=== PATIENT | female | born 1995 | race Two or more races ===

== ENCOUNTER 2017-02-27 22:12 | Inpatient (IN) | payer BC ==
[~2017-02-27] VITALS: Ht 167.6 cm; Wt 64.3 kg
--- NOTE | ~2017-02-27 | OR ---
PATIENT'S NAME: DIONE HARRINGTON [facility] AGE: 22 Y [address] ROOM: [place] [address] LOCATION: [facility] ADMIT DATE: 02/27/2017 OR/Procedure Report DISCHARGE DATE: FAMILY PHYSICIAN: PHYSICIAN, NO ATTENDING PHYSICIAN: Linnette Leon SURGEON: Linnette Leon MD SOLUTION COORDINATOR: None. DATE OF PROCEDURE: 02/28/2017 PREOPERATIVE DIAGNOSIS: Term intrauterine , spontaneous labor. POSTOPERATIVE DIAGNOSIS: Term intrauterine , spontaneous labor with delivery of viable male . PROCEDURE: Normal spontaneous vaginal delivery. ANESTHESIA: Intrathecal. ESTIMATED BLOOD LOSS: 100 mL. CLINICAL INDICATION: Dione Harrington is a 22-year-old female, 2, para 1, at 38 weeks' gestational age. She would present in spontaneous labor. She would have placement of intrathecal, artificial rupture of membranes and would push effectively. FINDINGS: Delivery of viable 7 pounds and 11 ounce male infant, scores 10 at 1 minute and 10 at 5 minutes. umbilical arterial cord blood gas is pending at the time of dictation. TECHNICAL PROCEDURES: The patient was left in the Labor and Delivery room, prepped and draped in the usual fashion. Her intrathecal anesthesia was sufficient for delivery. She would deliver a viable 7-pound and 11-ounce male over an intact perineum. The umbilical cord was doubly clamped, the intervening segments cut. was handed off to the mother and later the awaiting nursing services. umbilical arterial cord blood and venous cord blood were obtained for blood gas analysis and routine studies respectively. Placenta delivered spontaneously intact with 3 vessels. Exploration of the cervix and vagina noted them to be intact. The patient tolerated the procedure well, remained in Labor and Delivery room in good condition as did the . LINNETTE LEON MD PATIENT'S NAME: DIONE HARRINGTON [facility] AGE: 22 Y [address] ROOM: [place] [address] LOCATION: [facility] ADMIT DATE: 02/27/2017 OR/Procedure Report DISCHARGE DATE: FAMILY PHYSICIAN: SABIHA MYERS ATTENDING PHYSICIAN: Linnette Leon/trevorl /[id number] d: 02/28/17 0254 t: 03/03/17 0751, OPERATIVE SUMMARY
--- NOTE | ~2017-02-27 | DS ---
PATIENT'S NAME: DIONE LUIS [facility] AGE: 22 Y [address] ROOM: [place] [address] LOCATION: [facility] ADMIT DATE: 02/27/2017 Discharge Summary DISCHARGE DATE: 03/02/2017 FAMILY PHYSICIAN: , NO ATTENDING PHYSICIAN: Steve Leon HOSPITAL COURSE: Dione is a 22-year-old , female, 2, para 1, at term. She would present in spontaneous labor. She would have a normal spontaneous vaginal delivery. She would have an unremarkable postoperative course and discharged in good condition. DISCHARGE MEDICATIONS: Percocet. Please see instruction sheet for specifics. MD WON SHARP/modl /[id number] d: t: 03/13/17 1019, DISCHARGE SUMMARY
[2017-02-27 22:55] LABS: BASOPHIL % 0.4 %; EOSINOPHIL % 0.3 %; HEMATOCRIT 31.6 % (33.0-46.0); HEMOGLOBIN 10.5 g/dL (11.0-15.0); IMMATURE GRANULOCYTE % 0.4 %; LYMPHOCYTE # 2.2 K/uL (0.8-4.0); LYMPHOCYTE % 28.8 %; MCHC 33.2 gm/dL (32.0-36.5); MCV 87.3 fl (83.0-98.0); MONOCYTE # 0.4 K/uL (0.0-1.0); MONOCYTE % 5.2 %; MPV 11.8 fl (9.4-12.4); NEUTROPHIL # (ANC) 4.9 K/uL (1.8-7.8); NEUTROPHIL % 64.9 %; NRBC % 0 /100WBC (0-0.00); PLATELET COUNT 216 K/uL (150-450); RBC 3.62 M/uL (3.50-5.00); RDW-CV 13.6 % (11.9-14.6); WBC 7.6 K/uL (4.0-11.0)
[2017-02-28 00:52] LABS: PCO2 40 mmHg (35-45); PO2 18 mmHg (80-90)
[2017-02-28 00:53] LABS: BICARBONATE 23.9 mmol/L (18.0-23.0)
[2017-03-01 05:23] LABS: BASOPHIL % 0.4 %; EOSINOPHIL # 0.1 K/uL (0.0-0.5); HEMOGLOBIN 8.7 g/dL (11.0-15.0); IMMATURE GRANULOCYTE % 0.4 %; LYMPHOCYTE # 2.6 K/uL (0.8-4.0); MCH 28.7 pg (27.0-34.0); MCHC 32.2 gm/dL (32.0-36.5); MCV 89.1 fl (83.0-98.0); MONOCYTE # 0.4 K/uL (0.0-1.0); MONOCYTE % 5.1 %; MPV 10.8 fl (9.4-12.4); NEUTROPHIL # (ANC) 4.2 K/uL (1.8-7.8); NEUTROPHIL % 57.1 %; NRBC % 0 /100WBC (0-0.00); PLATELET COUNT 164 K/uL (150-450); RBC 3.03 M/uL (3.50-5.00); RDW-CV 14.1 % (11.9-14.6); WBC 7.3 K/uL (4.0-11.0)
[2017-03-02] MEDS ORDERED: PERCOCET 5-3251 EACH PO (09:52)
== END 2017-03-02 11:10 | disposition disaster alternative care site (69) | DRG 775 ==
LOC: GOBM 22:12 → GOBS 22:12 → GOBM 22:13 → GOBS 22:31
PROVIDERS: ADMIT Obstetrics & Gynecology
PROC: 10907ZC Drainage of Amniotic Fluid, Therapeutic from Products of Conception, Via Natural or Artificial Opening (ICD-10-PCS; principal; 2017-02-28)
PROC: 10E0XZZ Delivery of Products of Conception, External Approach (ICD-10-PCS; principal; 2017-02-28)
PROC: 4A1HX4Z Monitoring of Products of Conception, Cardiac Electrical Activity, External Approach (ICD-10-PCS; principal; 2017-02-28)
DX: O77.0 Labor and delivery complicated by meconium in amniotic fluid (principal); Z37.0 Single live birth; Z3A.38 38 weeks gestation of pregnancy
CPT/HCPCS: J2001; J2540; J2590; J3010; J7120